=== PATIENT | male | born 1940 | race Caucasian/White ===

== ENCOUNTER 2017-01-05 12:15 | Day surgery (SDC) | payer OTHER ==
[~2017-01-05] VITALS: Ht 165.1 cm; Wt 79.2 kg
[2017-01-05 13:00] VITALS: BP 90/63
[2017-01-05] MEDS ORDERED: VIT1CAPS11 PO (13:15)
[2017-01-05] MEDS ORDERED: POTA10TA6 PO (13:15)
[2017-01-05] MEDS ORDERED: LABE200T3 PO (13:15)
[2017-01-05] MEDS ORDERED: LORA10TA75 PO (13:15)
[2017-01-05] MEDS ORDERED: CAPT1TAB5 PO (13:15)
[2017-01-05] MEDS ORDERED: LIDOCAINE 1%, 2ML ONE (13:20)
[2017-01-05] MEDS ORDERED: LACTATED RINGERS 1,000 ML IV SCH (13:46)
[2017-01-05] MEDS ORDERED: FENTANYL PF 250 MCG/5ML ONE (13:57)
[2017-01-05] MEDS ORDERED: LIDOCAINE 1%, 2ML SQ PRN (14:00)
[2017-01-05] MEDS ORDERED: LIDOCAINE 1%, 20ML ONE (14:04)
[2017-01-05] MEDS ORDERED: PROPOFOL 10 MG/ML, 20ML ONE (14:06)
[2017-01-05] MEDS ORDERED: EPHEDRINE 50 MG/ML, 1ML ONE (14:06)
[2017-01-05] MEDS ORDERED: ONDANSETRON 2MG/ML, 2ML ONE (14:06)
[2017-01-05] MEDS ORDERED: ROCURONIUM 10 MG/ML ONE (14:06)
[2017-01-05] MEDS ORDERED: DEXAMETHASONE 4 MG/ML, 1ML ONE (14:06)
[2017-01-05] MEDS ORDERED: OXYcodone 5 MG/5 ML ORAL.SOL UDC PO PRN (16:00)
[2017-01-05] MEDS ORDERED: PROMETHAZINE 25 MG/ML, 1ML IV PRN (16:00)
[2017-01-05] MEDS ORDERED: hydrALAzine 20 MG/ML, 1ML IV PRN (16:00)
[2017-01-05] MEDS ORDERED: FENTANYL PF 100 MCG/2ML IV PRN (16:00)
[2017-01-05] MEDS ORDERED: ONDANSETRON 2MG/ML, 2ML IVPush PRN (16:00)
[2017-01-05] MEDS ORDERED: morphine SULFATE 10 MG/ML, 1ML IV PRN (16:00)
[2017-01-05] MEDS ORDERED: ACETAMINOPHEN 325 MG TABLET PO PRN (16:00)
[2017-01-05] MEDS ORDERED: LABETALOL 5MG/ML, 20ML IV PRN (16:00)
== END 2017-01-05 17:40 ==
LOC: OUT 12:15
PROVIDERS: ATTEND Urology
DX: D41.01 Neoplasm of uncertain behavior of right kidney (principal); I10 Essential (primary) hypertension; Z90.49 Acquired absence of other specified parts of digestive tract; Z98.890 Other specified postprocedural states; Z85.038 Personal history of other malignant neoplasm of large intestine
CPT/HCPCS: 36415; 50593; 77013; 85610; 93005; C2618; J1100; J2405; J2704; J3010; J3490; J7120

== ENCOUNTER → 2017-10-11 | Outpatient (CLI) | payer OTHER ==
[~2017-10-11] MED LIST: CAPT1TAB5 PO; LABE200T3 PO; LORA10TA75 PO; OMNIPAQUE 350 MG/ML, 100ML BOTTLE ONE; POTA10TA6 PO; VIT1CAPS11 PO
== END | disposition home or self-care (01) ==
LOC: CFH 11:40
PROVIDERS: ATTEND Internal Medicine
DX: C18.2 Malignant neoplasm of ascending colon (principal); N28.9 Disorder of kidney and ureter, unspecified
CPT/HCPCS: 71260; 74177; Q9967

== ENCOUNTER 2018-11-26 15:34 | Emergency (ER) | payer MEDICARE, OTHER ==
[~2018-11-26] VITALS: Ht 167.6 cm; Wt 79.0 kg
[~2018-11-26 15:34] MED LIST changes: -LABE200T3 PO; +LABE200T6 PO; -OMNIPAQUE 350 MG/ML, 100ML BOTTLE ONE
[2018-11-26] MEDS ORDERED: SODIUM CHLORIDE FLUSH 10ML SYR IVF ONE (16:30)
[2018-11-26] MEDS ORDERED: ASPIRIN 81 MG TABLET CHEW PO ONE (16:30)
[2018-11-26 16:58] LABS: BASOPHILS # (AUTO) 0.06 x10^3/uL (0-0.1); BASOPHILS % (AUTO) 1 % (0-1); EOSINOPHILS # (AUTO) 0.05 x10^3/uL (0-0.4); EOSINOPHILS % (AUTO) 0 % (1-7); LYMPHOCYTES # (AUTO) 0.91 x10^3/uL (1-3.4); LYMPHOCYTES % (AUTO) 7 % (22-44); MD NO; MEAN CORPUSCULAR HEMOGLOBIN 30.3 pg (27.5-34.5); MEAN CORPUSCULAR HGB CONC 32.3 g/dL (33.2-36.2); MEAN CORPUSCULAR VOLUME 93.8 fL (81-97); MEAN PLATELET VOLUME 7.4 fL (7.4-10.4); MONOCYTES # (AUTO) 0.63 x10^3/uL (0.2-0.8); MONOCYTES % (AUTO) 5 % (2-9); NEUTROPHILS # (AUTO) 11.35 x10^3/uL (1.8-6.8); NEUTROPHILS % (AUTO) 87 % (42-75); PLATELET COUNT 206 x10^3/uL (130-400); RED BLOOD COUNT 5.18 x10^6/uL (4.38-5.82); RED CELL DISTRIBUTION WIDTH 14.1 % (9.4-14.8)
[2018-11-26] MEDS ORDERED: ASPIRIN 81 MG TABLET EC ONE (17:00)
[2018-11-26 17:10] LABS: ALANINE AMINOTRANSFERASE 15 U/L (12-78); ALBUMIN 3.5 g/dL (3.4-5.0); ANION GAP 7 mmol/L (5-15); CALCIUM 8.5 mg/dL (8.5-10.1); CHLORIDE 113 mmol/L (98-107)
[2018-11-26 17:14] LABS: ALKALINE PHOSPHATASE 42 U/L (45-117); BILIRUBIN,TOTAL 0.8 mg/dL (0.2-1.0); TOTAL PROTEIN 6.9 g/dL (6.4-8.2); TROPONIN I < 0.015 ng/mL (0.000-0.045)
[2018-11-26 18:09] VITALS: BP 116/83
== END 2018-11-26 18:12 | disposition home or self-care (01) ==
LOC: ED 18:06
DX: R55 Syncope and collapse (principal); E86.0 Dehydration; E86.1 Hypovolemia; I10 Essential (primary) hypertension
CPT/HCPCS: 36415; 71046; 80053; 84484; 85025; 93005; 99284

== ENCOUNTER 2019-07-16 11:44 | Outpatient (CLI) | payer OTHER | END 2019-07-16 23:59 | disposition home or self-care (01) | LOC: RAD 11:44 | PROVIDERS: ATTEND Urology | DX: Z02.9 Encounter for administrative examinations, unspecified (principal) ==

== ENCOUNTER 2019-08-27 09:48 | Outpatient (CLI) | payer OTHER | END 2019-08-27 23:59 | disposition home or self-care (01) | LOC: RAD 09:48 | PROVIDERS: ATTEND Urology | DX: C64.1 Malignant neoplasm of right kidney, except renal pelvis (principal); N28.89 Other specified disorders of kidney and ureter | CPT/HCPCS: 77013 ==

== ENCOUNTER 2019-10-03 08:00 | Day surgery (SDC) | payer OTHER ==
[~2019-10-03] VITALS: Ht 167.6 cm; Wt 83.3 kg
[2019-10-03 08:25] VITALS: BP 129/90
[2019-10-03] MEDS ORDERED: CEFAZOLIN PMX 1GM/50ML 50 ML IV ONE (08:30)
[2019-10-03] MEDS ORDERED: SODIUM CHLORIDE 0.9% 1,000 ML IV SCH (08:30)
[2019-10-03] MEDS ORDERED: LIDOCAINE 1%, 10ML ONE ×2 (09:09→09:10)
[2019-10-03 09:10] LABS: BASOPHILS # (AUTO) 0.06 x10^3/uL (0-0.1); BASOPHILS % (AUTO) 1 % (0-1); EOSINOPHILS # (AUTO) 0.41 x10^3/uL (0-0.4); EOSINOPHILS % (AUTO) 6 % (1-7); LYMPHOCYTES # (AUTO) 1.28 x10^3/uL (1-3.4); LYMPHOCYTES % (AUTO) 19 % (22-44); MD NO; MEAN CORPUSCULAR HEMOGLOBIN 30.8 pg (27.5-34.5); MEAN CORPUSCULAR HGB CONC 32.8 g/dL (33.2-36.2); MEAN CORPUSCULAR VOLUME 93.9 fL (81-97); MEAN PLATELET VOLUME 7.7 fL (7.4-10.4); MONOCYTES # (AUTO) 0.53 x10^3/uL (0.2-0.8); MONOCYTES % (AUTO) 8 % (2-9); NEUTROPHILS # (AUTO) 4.48 x10^3/uL (1.8-6.8); NEUTROPHILS % (AUTO) 66 % (42-75); PLATELET COUNT 213 x10^3/uL (130-400); RED BLOOD COUNT 5.26 x10^6/uL (4.38-5.82); RED CELL DISTRIBUTION WIDTH 14.4 % (9.4-14.8)
[2019-10-03 09:15] LABS: ALBUMIN 3.4 g/dL (3.4-5.0); ANION GAP 8 mmol/L (5-15); CALCIUM 8.9 mg/dL (8.5-10.1); CHLORIDE 112 mmol/L (98-107)
[2019-10-03 09:18] LABS: CREATININE 1.74 mg/dL (0.7-1.3); INTERNATIONAL NORMALIZED RATIO 1.01 (0.93-1.1); PROTHROMBIN TIME 10.7 Seconds (9.6-11.5)
[2019-10-03 09:19] LABS: ALANINE AMINOTRANSFERASE 16 U/L (12-78); ALKALINE PHOSPHATASE 52 U/L (45-117); BILIRUBIN,TOTAL 0.8 mg/dL (0.2-1.0)
[2019-10-03] MEDS ORDERED: FENTANYL PF 100 MCG/2ML ONE ×2 (09:34→09:36)
[2019-10-03] MEDS ORDERED: MIDAZOLAM 1 MG/ML, 5ML ONE ×2 (09:34→09:35)
[2019-10-03] MEDS ORDERED: NALOXONE 1 MG/ML, 2ML ONE (09:35)
[2019-10-03] MEDS ORDERED: FLUMAZENIL 0.1 MG/1 ML, 5ML ONE (09:35)
== END 2019-10-03 12:30 | disposition home or self-care (01) ==
LOC: OUT 08:00
PROVIDERS: ATTEND Urology
DX: N28.89 Other specified disorders of kidney and ureter (principal); Z11.59 Encounter for screening for other viral diseases; C64.9 Malignant neoplasm of unspecified kidney, except renal pelvis; I10 Essential (primary) hypertension; Z79.899 Other long term (current) drug therapy
CPT/HCPCS: 36415; 50593; 77013; 80053; 85025; 85610; 99156; 99157; C2618; J0690; J2250; J3010; J7030; U0001; J2310